=== PATIENT | female | born 1965 | race Caucasian/White ===

== ENCOUNTER 2023-02-23 08:47 | Emergency (ER) | payer OTHER, SELFPAY ==
[2023-02-23 08:53] VITALS: BP 148/86; PULSE 73; RESP 16; TEMP 36; O2SAT 99
--- NOTE | 2023-02-23 09:20 | ED.GENADULT ---
HPI - General Adult General Chief complaint: Urogenital-Female Stated complaint: Urinary Problem Source: patient Mode of arrival: ambulatory Limitations: no limitations History of Present Illness HPI narrative: Patient presents for evaluation of urinary symptoms for the last 5 days. Symptoms include dysuria, urinary frequency, and suprapubic pressure. No fever, chills, nausea, vomiting, abdominal pain, low back pain, vaginal bleeding or discharge. She has been taking azo [id number]-uld-[id number] for symptoms. Related Data Home Medications Medication Instructions Recorded Confirmed atorvastatin 20 mg tablet mg 02/23/23 levothyroxine 50 mcg tablet mcg 02/23/23 Allergies Allergy/AdvReac Type Severity Reaction Status Date / Time sulfamethoxazole Allergy Unknown Hives / Verified 02/28/18 13:53 Red Face tetracycline Allergy Unknown Hives / Verified 02/28/18 13:53 Red Face trimethoprim Allergy Unknown Hives / Verified 02/28/18 13:53 Red Face Review of Systems Review of Systems: CONSTITUTIONAL: Denies fever, chills, or sweats. EYES: Denies visual changes, redness, or discharge. ENT: Denies rhinorrhea, congestion, sore throat, or otalgia. CARDIOVASCULAR: Denies chest pain, palpitations, or edema. RESPIRATORY: Denies cough or dyspnea. GASTROINTESTINAL: Denies abdominal pain, nausea, vomiting, or diarrhea. GENITOURINARY: Reports urinary frequency, dysuria, suprapubic pressure. Denies any hematuria, vaginal bleeding or discharge SKIN: Denies rash or itching. MUSCULOSKELETAL: Denies back pain, joint pain, or myalgia. NEUROLOGIC: Denies headache, numbness, dizziness, or weakness. PSYCHIATRIC: Denies anxiety or depression. [facility] Past Medical History Medical History Hyperlipidemia Hypothyroidism Surgical History Surgical History No pertinent past surgical history Family History Family History Mother Family history non-contributory Social History Social History Smoking status: Never smoker Substance use: never Living arrangements: with family Gender identity (if verbalized by the patient): Female Spiritual care concerns: No Exam Narrative: GENERAL: Well-appearing, well-nourished, and in no acute distress. HEAD: Normocephalic, atraumatic. EYES: PERRLA and EOMI. ENT: Nares clear, no rhinorrhea or epistaxis. Mucous membranes moist. Oropharynx without tonsillar hypertrophy exudate or other lesions. Bilateral TMs pearly lima nonbulging NECK: Supple. No adenopathy or masses. No carotid bruits or JVD CHEST: Clear to auscultation. No respiratory distress. No wheezes rales or rhonchi HEART: Regular rate and rhythm. No murmur heard. Normal peripheral pulses. ABDOMEN: Soft, nontender, nondistended, normal active bowel sounds. BACK: No CVA tenderness EXTREMITIES: Normal range of motion. No edema. SKIN: Warm, dry, no rash. NEURO: No focal deficits. Alert and oriented x3. PSYCH: Normal mood and affect. Course Course Emergency Course: This is a 57-year-old female who presented for evaluation of urinary symptoms. Nitrite positive urine. Will treat with Macrobid. Increase hydration. She may continue taking azo for symptoms. Follow-up with primary provider. Go to the ER for fever, chills, vomiting. Patient in agreement plan of care. Level of Care: Express Care Visit Vital Signs Vital signs: Vital Signs Temperature 36.0 C L 02/23/23 08:53 Pulse Rate 73 02/23/23 08:53 Respiratory Rate 16 02/23/23 08:53 Blood Pressure 148/86 H 02/23/23 08:53 Pulse Oximetry 99 02/23/23 08:53 Oxygen Delivery Room Air 02/23/23 08:53 Temperature 36.0 C L 02/23/23 08:53 Pulse Rate 73 02/23/23 08:53 Respiratory Rate 16 02/23/23 08:53
== END 2023-02-23 09:22 | disposition home or self-care (01) ==
PROVIDERS: Emergency Provider Nurse Practitioner; PCP Nurse Practitioner Family
DX: N30.00 Acute cystitis without hematuria (principal); E78.5 Hyperlipidemia, unspecified; E03.9 Hypothyroidism, unspecified
CPT/HCPCS: 81003; 87077; 87086; 87186; 99203; G0463

== ENCOUNTER 2023-09-16 11:35 | Emergency (ER) | payer OTHER, SELFPAY ==
--- NOTE | 2023-09-16 11:38 | ED.URI ---
HPI - URI/Sore Throat General Chief Complaint: Upper Respiratory Infection Stated Complaint: cough/sinus/ears Time Seen by Provider: 09/16/23 11:38 Source: patient Mode of arrival: ambulatory Limitations: no limitations History of Present Illness HPI Narrative: But patient is a 57-year-old female that presents with 2 weeks of congestion, sinus fullness, ear pressure and cough. Patient reports cough is keeping her up at night. Patient has tried kyqu-pjt-[id number] medications with no relief. Related Data Home Medications Medication Instructions Recorded Confirmed levothyroxine 50 mcg tablet mcg 02/23/23 Allergies Allergy/AdvReac Type Severity Reaction Status Date / Time sulfamethoxazole Allergy Unknown Hives / Verified 09/16/23 11:38 Red Face tetracycline Allergy Unknown Hives / Verified 09/16/23 11:38 Red Face trimethoprim Allergy Unknown Hives / Verified 09/16/23 11:38 Red Face Review of Systems Review of Systems: All systems reviewed & are unremarkable except as noted in HPI and below Constitutional: Constitutional: Denies body ache(s), Denies chills, Denies fatigue, Denies fever(s), Denies headache(s), Denies malaise and Denies weakness Eyes: Eyes: Denies blurry vision, Denies itchy eyes and Denies loss of vision ENT: Reports otalgia, Denies headache(s), Reports nasal congestion, Denies sinus pain, Reports sinus pressure and Denies sore throat Cardiovascular: Cardiovascular: Denies chest pain, Denies irregular heart rhythm and Denies dyspnea Respiratory: Respiratory: Reports cough and Denies dyspnea Gastrointestinal: Gastrointestinal: Denies abdominal pain, Denies diarrhea, Denies nausea and Denies vomiting Musculoskeletal: Musculoskeletal: Denies back pain, Denies myalgias and Denies arthralgias Integumentary/Breasts: Skin/Breast: Denies pruritus and Denies rash Neurologic: Denies headache(s), Denies loss of vision and Denies weakness Psychiatric: Psychiatric: Reports no additional psychiatric complaints Endocrine: Endocrine: Denies fatigue Allergic/Immunologic: Allergic/Immunologic: Denies itchy eyes PMFSH Past Medical History Medical History Hyperlipidemia Hypothyroidism Surgical History Surgical History No pertinent past surgical history Family History Family History Mother Family history non-contributory Social History Social History Smoking status: Never smoker Substance use: never Living arrangements: with family Gender identity (if verbalized by the patient): Female Spiritual care concerns: No Comments At time of signature, agree with nursing past medical, surgical, social and family history. There is no relevant family history pertinent to the presenting complaint. Exam Const: General: cooperative, healthy appearing, comfortable, no acute distress and well nourished Nutritional Appearance: well nourished Orientation/consciousness: patient oriented x3 Limitations: no limitations HENMT: Head: normal to inspection, normocephalic and atraumatic Ears: hearing grossly normal bilaterally, external ears normal, TM's normal bilaterally, EAC's normal and no periauricular adenopathy Face/Nose/Sinus: Normal external nose present, Abnormal mucous membranes and turbinates present erythematous bilateral and diffuse, normal facial exam, sinuses nontender and face symmetric Face and sinus: normal facial exam, sinuses nontender and face symmetric Mouth: Yes Normal oral and palatal mucosa present, Yes lip normal, Yes tongue normal, Yes Normal salivary glands and ducts present, Yes oropharynx normal and Yes moist mucous membranes Teeth and gingiva: dentition normal Throat: posterior oropharynx normal, tonsils normal and uvula midline Eyes: General: cuauhtemoc
[2023-09-16 11:42] VITALS: BP 140/87; PULSE 84; RESP 16; TEMP 36.3; O2SAT 99
== END 2023-09-16 11:58 | disposition home or self-care (01) ==
PROVIDERS: Emergency Provider Nurse Practitioner Family; PCP Nurse Practitioner Family
DX: J06.9 Acute upper respiratory infection, unspecified (principal); E78.5 Hyperlipidemia, unspecified; E03.9 Hypothyroidism, unspecified
CPT/HCPCS: 99213; G0463

== ENCOUNTER 2023-12-06 14:06 | Emergency (ER) | payer OTHER, SELFPAY ==
[2023-12-06 14:14] VITALS: BP 168/98; PULSE 78; RESP 16; TEMP 37.1; O2SAT 100
--- NOTE | 2023-12-06 14:45 | ED.EYEPROB ---
HPI - Eye Problem General Chief complaint: Eye Problems Stated complaint: eyes Time Seen by Provider: 12/06/23 14:45 Source: patient, RN notes reviewed and old records reviewed Mode of arrival: ambulatory Limitations: no limitations History of Present Illness HPI Narrative: 58 year old female who presents to [facility] care with complaints of eyes being irritated and pink since last week with drainage noted to eyes for the past 2 days. Patient has been using OTC pink eye relief eye drops and cool compresses to her eyes. MD chief complaint: eye redness and other (drainage) Onset (ago): day(s) (2 days of drainage pink and irritated for 4-5 days) Location: both eyes Severity: moderate Treatments Prior to Arrival: OTC eye drops (pink eye relief drops) and other (cool compresses to eyes.) Related Data Home Medications Medication Instructions Recorded Confirmed levothyroxine 50 mcg tablet 50 mcg PO DAILY 02/23/23 12/06/23 Allergies Allergy/AdvReac Type Severity Reaction Status Date / Time sulfamethoxazole Allergy Unknown Hives / Verified 12/06/23 14:14 Red Face tetracycline Allergy Unknown Hives / Verified 12/06/23 14:14 Red Face trimethoprim Allergy Unknown Hives / Verified 12/06/23 14:14 Red Face Review of Systems Review of Systems: CONSTITUTIONAL: Denies fever, chills, or sweats. EYES: Denies visual changes. Reports redness,, irritation, discharge.to bilateral eyes, no sharp pain or visual changes, ENT: Denies rhinorrhea, congestion, sore throat, or otalgia. CARDIOVASCULAR: Denies chest pain, palpitations, or edema. RESPIRATORY: Denies cough or dyspnea. SKIN: Denies rash or itching. NEUROLOGIC: Denies headache All systems reviewed & are unremarkable except as noted in HPI and below PMFSH Past Medical History Medical History Hyperlipidemia Hypothyroidism Surgical History Surgical History History of dilatation and curettage History of endometrial ablation Previous section Family History Family History Mother Family history non-contributory Social History Social History Smoking status: Never smoker Substance use: never Living arrangements: with family Gender identity (if verbalized by the patient): Female Spiritual care concerns: No Comments At time of signature, agree with nursing past medical, surgical, social and family history. There is no relevant family history pertinent to the presenting complaint Exam Narrative: GENERAL: Well-appearing, well-nourished, and in no acute distress. HEAD: Normocephalic, atraumatic. EYES: PERRLA and EOMI. Upper and lower eyelids unremarkable. No periorbital cellulitis noted. Sclera and conjunctivae injected bilateral eyes with mucoid drainage ENT: Nares clear, no rhinorrhea or epistaxis. Mucous membranes moist. NECK: Supple.no lymphadenopathy CHEST: Clear to auscultation. No respiratory distress. SAO2 100% on room air HEART: Regular rate and rhythm. No murmur heard. Normal peripheral pulses. SKIN: Warm, dry, no rash. NEURO: No focal deficits. Alert and oriented x3. Course Course Emergency Course: Patient is aware of diagnosis, understands and agrees to treatment plan. Anticipatory guidance given. Patient agrees to follow-up as directed and is aware of reasons to seek care at the emergency department. Portions of this record may have been created with voice recognition software Level of Care: Express Care Visit Vital Signs Vital signs: Vital Signs Temperature 37.1 C 12/06/23 14:14 Pulse Rate 78 12/06/23 14:14 Respiratory Rate 16 12/06/23 14:14 Blood Pressure 168/98 H 12/06/23 14:14 Pulse Oximetry 100 12/06/23 14:14 Oxygen Delivery Room Air 12/06/23 14:14 Temperature 37.1 C
== END 2023-12-06 14:59 | disposition home or self-care (01) ==
PROVIDERS: Emergency Provider Registered Nurse; PCP Nurse Practitioner Family
DX: H10.9 Unspecified conjunctivitis (principal); E78.5 Hyperlipidemia, unspecified; E03.9 Hypothyroidism, unspecified
CPT/HCPCS: 99213; G0463

== ENCOUNTER 2023-12-11 08:50 | Emergency (ER) | payer OTHER, SELFPAY ==
[2023-12-11 09:06] VITALS: BP 144/93; PULSE 80; RESP 20; TEMP 36.8; O2SAT 99
--- NOTE | 2023-12-11 09:33 | ED.GENADULT ---
HPI - General Adult General Chief complaint: Upper Respiratory Infection Stated complaint: throat/ears Source: patient Mode of arrival: ambulatory Limitations: no limitations History of Present Illness HPI narrative: Patient presents for evaluation of sore throat. She indicates approximately 1 week ago she had conjunctivitis. She has some redness in her posterior pharynx at that time. She states that her symptoms have progressively worsened. She now reports bilateral cervical lymphadenopathy, right greater than the left. She also reports right-sided otalgia. No fever, chills, nausea, vomiting. Several family members have been sick as of late. Related Data Allergies Allergy/AdvReac Type Severity Reaction Status Date / Time sulfamethoxazole Allergy Unknown Hives / Verified 12/11/23 09:15 Red Face tetracycline Allergy Unknown Hives / Verified 12/11/23 09:15 Red Face trimethoprim Allergy Unknown Hives / Verified 12/11/23 09:15 Red Face Review of Systems Review of Systems: CONSTITUTIONAL: Denies fever, chills, or sweats. EYES: Denies visual changes, redness, or discharge. ENT: Reports sore throat and right sided otalgia CARDIOVASCULAR: Denies chest pain, palpitations, or edema. RESPIRATORY: Denies cough or dyspnea. GASTROINTESTINAL: Denies abdominal pain, nausea, vomiting, or diarrhea. GENITOURINARY: Denies dysuria or hematuria. SKIN: Denies rash or itching. MUSCULOSKELETAL: Denies back pain, joint pain, or myalgia. LYMPHATICS: Reports bilateral lymphadenopathy, right greater than left NEUROLOGIC: Denies headache, numbness, dizziness, or weakness. PSYCHIATRIC: Denies anxiety or depression. [facility] Past Medical History Medical History Hyperlipidemia Hypothyroidism Surgical History Surgical History History of dilatation and curettage History of endometrial ablation Previous section Family History Family History Mother Family history non-contributory Social History Social History Smoking status: Never smoker Substance use: never Living arrangements: with family Gender identity (if verbalized by the patient): Female Spiritual care concerns: No Exam Narrative: GENERAL: Well-appearing, well-nourished, and in no acute distress. HEAD: Normocephalic, atraumatic. EYES: PERRLA and EOMI. ENT: Nares clear, no rhinorrhea or epistaxis. Mucous membranes moist. Oropharynx without tonsillar hypertrophy exudate or other lesions. There is posterior pharyngeal erythema. Bilateral TMs pearly lima nonbulging NECK: Supple. No adenopathy or masses. No carotid bruits or JVD CHEST: Clear to auscultation. No respiratory distress. No wheezes rales or rhonchi HEART: Regular rate and rhythm. No murmur heard. Normal peripheral pulses. ABDOMEN: Soft, nontender, nondistended, normal active bowel sounds. EXTREMITIES: Normal range of motion. No edema. SKIN: Warm, dry, no rash. NEURO: No focal deficits. Alert and oriented x3. PSYCH: Normal mood and affect. Course Course Emergency Course: This is a 58-year-old female that presented for evaluation of sore throat and right-sided otalgia. Rapid strep negative. Through shared decision making opted to proceed with antibiotic therapy. Start Augmentin. Increase hydration. Nvpu-xtq-uizulzq agents for symptom management. Follow up with primary provider. Go to the ER for worsening symptoms. Patient in agreement plan care. Level of Care: Express Care Visit Vital Signs Vital signs: Vital Signs Temperature 36.8 C 12/11/23 09:06 Pulse Rate 80 12/11/23 09:06 Respiratory Rate 20 12/11/23 09:06 Blood Pressure 144/93 H 12/11/23 09:06 Pulse Oximetry 99 12/11/23 09:06 Oxygen Delivery Room Air
== END 2023-12-11 09:40 | disposition home or self-care (01) ==
PROVIDERS: Emergency Provider Nurse Practitioner; PCP Nurse Practitioner Family
DX: J02.9 Acute pharyngitis, unspecified (principal); E78.5 Hyperlipidemia, unspecified; E03.9 Hypothyroidism, unspecified
CPT/HCPCS: 87081; 87880; 99213; G0463

== ENCOUNTER 2024-05-29 01:14 | Day surgery (SDC) | payer OTHER, SELFPAY ==
[2024-05-23 14:44] VITALS: BMI 27.1
--- NOTE | 2024-05-23 14:45 | PC.NURSE ---
Report to the Outpatient Waiting Room, entrance under the green pavilion located off [facility], at time _0930_ on date _[id number]_. Planned Procedure Time: _1130_.? Time changes happen often and if your time is changed the preop area will call you the afternoon before. - You and your visitor will be asked to self-screen and do not enter if you have any COVID symptoms. Please call surgeon if you need to reschedule. - A mask is optional within the hospital at this time. Patients may have clear liquids (water, carbonated beverages, clear teas, apple juice) until 3 hours prior to surgery with a maximum of 20 ounces. - No food from midnight until time of surgery and no smoking Take only the following medications with a SIP of water on the morning of surgery: ____Estradiol and Methoprogesterone. DO NOT STOP ANY OF YOUR OTHER PRESCRIPTION MEDICATIONS PRIOR TO SURGERY EXCEPT THE FOLLOWING Medications to discontinue per physician All vitamins and supplements. Date to take last rzya____[id number] Please no make-up, nail equatorial guinean, hairspray, perfume, deodorant, or body powder the day of surgery.? No jewelry (including any body piercings) or valuables the day of surgery, leave them at home.? Please take a shower or bath the night before, or the morning of, surgery with an antibacterial soap.? Wear comfortable, loose fitting clothing.? - Jewelry must be removed prior to entering the operating room.? Rings and piercings that are not removed may be cut off. - The hospital will not accept responsibility for valuables.? - Please leave all valuables, including medications, at home the day of surgery. If you are going home after surgery, a licensed street flusher driver must drive you home.? - NO public transportation without another adult if you receive anesthesia. - We recommend that an adult stay with you for 24 hours following discharge. - We also recommend that you do not drive, make important decision, drink alcoholic beverages, or take any drugs that were not prescribed by your health care provider for at least 24 hours after your discharge time. Follow any additional instructions given to you from your surgeon. Telephone instructions given to __Francisca__and asked if any additional questions and then verbalized understanding. Patient advised to call surgeon office or pre surgery nurse liaison [phone] if any additional questions.
[2024-05-29 08:58] VITALS: BP 160/85; PULSE 65; RESP 18; TEMP 36.4; O2SAT 100
[2024-05-29] MEDS: LACTATED RINGERS 1,000 ML 30 ML IV CONT (09:55)
[2024-05-29 10:30] LABS: BEDSIDEPREGUCG Negative (Negative)
--- NOTE | 2024-05-29 10:30 | SUR.PREOP ---
PT AND FAMILY INFORMED OF SURGERY TIME DELAY, DENIES NEEDS AT THIS TIME
--- NOTE | 2024-05-29 11:09 | WPDHPUPDATE1 ---
History and Physical Update Update Date/Time: 05/29/24 11:09 History and Physical has been reviewed, including an updated exam of the patient. There are NO changes in the patient's condition. Risks, benefits, and alternatives have been discussed and questions answered. Patient agrees to proceed with procedure.
--- NOTE | 2024-05-29 11:27 | WPDANESEPPF ---
Anes - Initial Pre Proc Eval Procedure: Operation Date: 05/29/24 11:30 Proposed Procedures p Excision of Right Shoulder Subcutaneous Mass - Aadm Fam MD Date/Time: 05/29/24 11:27 Surgeon: Adam Fam MD Pre Op Diagnosis: Right Shoulder Subcutaneous Mass Patient Data Age: 58 Gender: F Height: 1.65 m Weight: 72.2 kg Last Vital Signs Temp 36.4 C L 05/29/24 08:58 Pulse 65 05/29/24 08:58 Resp 18 05/29/24 08:58 BP 160/85 H 05/29/24 08:58 Pulse Ox 100 05/29/24 08:58 O2 Del Method Room Air 05/29/24 08:58 Allergies Allergy/AdvReac Type Severity Reaction Status Date / Time sulfamethoxazole Allergy Unknown Hives / Verified 05/23/24 14:34 Red Face tetracycline Allergy Unknown Hives / Verified 05/23/24 14:34 Red Face trimethoprim Allergy Unknown Hives / Verified 05/23/24 14:34 Red Face Home Medications Medication Instructions Recorded Confirmed Type cholecalciferol (vitamin D3) 125 125 mcg PO DAILY 05/23/24 05/24/24 History mcg (5,000 unit) tablet (Vitamin D3) cod liver oil 1 cap PO DAILY 05/23/24 05/24/24 History estradiol 1 mg tablet 1 mg PO DAILY 05/23/24 05/24/24 History magnesium 500 mg tablet 1,500 mg PO DAILY 05/23/24 05/24/24 History medroxyprogesterone 2.5 mg tablet 1.25 mg PO DAILY 05/23/24 05/24/24 History citmcpmc-omp-njbhd ac 400 1 tablet PO DAILY 05/23/24 05/24/24 History mcg-calcium carb 500 mg-vit K1 20 mcg tablet (Women's 50 Plus Multivitamin) Laboratory Tests 05/29/24 10:28 POC Urine HCG, Qual Negative (Negative) Patient hx anesthesia problems: none Family hx anesthesia problems: none Results Review: All pre-operative results and documents have been reviewed as part of the pre-operative evaluation. [facility] Past Medical History Medical History Hyperlipidemia Hypothyroidism Surgical History Surgical History History of dilatation and curettage History of endometrial ablation Previous section Family History Family History Mother Family history non-contributory Social History Social History Years smoked: 6 Smoking status: Former smoker Tobacco type: cigarettes Smoking end date: 05/23/99 Substance use: never Do You Feel Safe in your Home?: Yes Lack of Transportation: No Lack of Food: Never True Current Housing: I Have Housing Concerned About Future Housing: No Difficulty Paying Gas/Electric Bills: No Difficulty Paying for Meds: No Currently Unemployed: No Education: High School Diploma/GED Difficulty w/ Childcare or Family Care: No Living arrangements: with family Gender identity (if verbalized by the patient): Female Spiritual care concerns: No Anes - Eval Final PreProcedure Day of Procedure 05/29/24 11:27 Patient weight: overweight Heart: regular rate and rhythm Lungs: clear to auscultation Airway: Mallampati scale class II Neurological: alert and oriented Last oral intake: >/= 8 hours ASA classification: III Emergent: no Anesthetic plan: proceed Anesthesia type and monitoring: general GIVS and standard monitoring Results Review: All pre-operative results and documents have been reviewed as part of the pre-operative evaluation. Informed Consent: The patient's anesthetic plan and its attendant risks and benefits were discussed with the patient/family/POA. Questions were solicited and answers provided to the satisfaction of the patient/family/POA.
[2024-05-29] MEDS: ceFAZolin 2 GM/D5W 50 ML 2 GM/50 ML BAG IVPB (12:45)
[2024-05-29] MEDS: BUPivacaine HCL 0.5% 10 ML AMP 20 ML INFILTRATE (13:13)
[2024-05-29] MEDS: LIDO 1%/EPINEPHRINE 1:100,000 50 ML VIAL 20 ML INFILTRATE (13:14)
[2024-05-29 13:32] VITALS: BP 107/62; PULSE 73; RESP 16; O2SAT 100
--- NOTE | 2024-05-29 13:48 | W.PM.PROC2 ---
Procedure Note - Detailed Date of Procedure 05/29/24 Pre-op Diagnosis Right Shoulder Subcutaneous Mass Post-op Diagnosis Other (Right shoulder lipoma) Procedure Performed Excision right shoulder lipoma. Surgeon Adam Fam MD Director Of Product Development [facility] [place] Anesthesia MAC and Local Indications Patient is a 58-year-old female who presented evaluation after noticing a home slowly enlarging subcutaneous mass on the top of her right shoulder. It was not painful. She presents now for excision. Findings Patient had a 4x2.5x1.5cm well-circumscribed lipomatous mass consistent with benign lipoma. Description of Procedure After informed consent was obtained patient brought to the operating room she was placed left lateral decubitus position and given IV sedation by Anesthesia.. The right shoulder then prepped and draped usual sterile fashion. A time-out was then performed correctly identifying the patient as well as the procedure to be performed verifying the site marking. He was given perioperative IV antibiotics. 1% lidocaine mixed with 0.5% Marcaine was injected around the subcutaneous mass for local anesthetic effect. The mass was on the top of the right shoulder and so I made a longitudinal incision on top of the mass paralleling the longitudinal axis of the torso. Once I dissected down through dermis skin with a scalpel I then used electrocautery and I encountered the capsule to the lipomatous mass. I then used a combination of blunt finger and electrocautery dissection to completely excise out the mass from the surrounding subcutaneous tissue. Once the mass was excised it measured 4x2.5x1.5cm. It was then sent to pathology for examination. It was grossly consistent with a benign lipoma. I then irrigated out the incision sterile saline solution. The incision was then closed utilizing interrupted 2-0 Vicryl sutures in the deeper subcutaneous tissues. This then followed by layer interrupted 3-0 Vicryl sutures in the more superficial subcutaneous tissues. The skin edges were then approximated utilizing a running subcuticular 4-0 Monocryl suture. The incision was then cleaned and skin glue was applied. The patient tolerated the procedure well no complications. All sponges, needles, and instrument counts were correct at the end procedure. EBL was _5__cc. The patient was awakened and taken to recovery in stable and satisfactory condition. Implants None Estimated Blood Loss 5 Drains No Packing No Pathology Yes (Right shoulder lipoma to pathology) Complications No immediate complications Condition Stable Disposition PACU [facility] Billing Surgery - Charge Forward: Surgery Billing
[2024-05-29 14:00] VITALS: BP 108/64; PULSE 67; RESP 16; O2SAT 98
[2024-05-29 14:25] VITALS: BP 128/80; PULSE 66; RESP 14
== END 2024-05-29 14:35 | disposition home or self-care (01) ==
PROVIDERS: PCP Nurse Practitioner Family; Visit Provider Surgery
PROC: (CPT 23071; principal; 2024-05-29 11:30)
DX: D17.21 Benign lipomatous neoplasm of skin and subcutaneous tissue of right arm (principal); E78.5 Hyperlipidemia, unspecified; E03.9 Hypothyroidism, unspecified; Z98.890 Other specified postprocedural states; Z87.891 Personal history of nicotine dependence
CPT/HCPCS: 23071; 88304; J0690; J2371; J2704; J3010; J7120